=== PATIENT | female | born 1940 | race Caucasian/White ===

== ENCOUNTER → 2017-10-11 | Outpatient (CLI) | payer MEDICARE | LOC: M.RAD 09:50 | DX: R06.02 Shortness of breath (principal); R63.4 Abnormal weight loss ==

== ENCOUNTER 2021-05-01 13:52 | Inpatient (IN) | payer MEDICARE ==
[~2021-05-01] VITALS: Ht 165.1 cm; Wt 58.1 kg
--- NOTE | ~2021-05-01 | CON ---
[address] [address] CONSULTATION Name: MARICARMEN TREJO Room: [address] IN .R.#: [id number] Admission: 05/01/21 Attend Phys: William Pickens MD Discharge: Date of : 42 Report #: [id number] THIS REPORT FOR: cc: Yoana Mahmood MD, Katrina MD Khosla, Parveen K. MD ~ DATE OF CONSULTATION: 05/02/2021 HISTORY OF PRESENT ILLNESS: This is a 80-year-old female patient who was evaluated by me for any neurological etiology for the patient, what looks like syncope. The patient does not remember much about it. She was sitting and went unresponsive. Apparently, she has low blood pressure at that time. She came back by herself. She had another episode in October and she was in [facility]. I do not think they found any cause for that. Review of systems indicates she does have a history of Parkinson disease. She follows up with Dr. Rai for the neurological care. She goes to [place]. She had a low blood pressure, even when she came to Emergency Room. Apparently, her heart rate was also low at that time. She feels back to her baseline. In fact, she was sitting and eating. REVIEW OF SYSTEMS: A 14-point review of systems was carried out. She had prior episode of syncope. She apparently has dementia. She is in assisted living. She denies any prior history of stroke. She is on Depakote, I am not sure why. She is not complaining of any new eye, ENT, cardiac, respiratory, GI, , musculoskeletal, constitutional, dermatological, hematological, psychiatric, throat, allergic symptom associated with present symptomatology. PAST MEDICAL HISTORY: Positive for Parkinson Disease as I understand, she is on Sinemet. FAMILY HISTORY: Unremarkable. SOCIAL HISTORY: She lives in assisted living. PHYSICAL EXAMINATION: GENERAL: Indicate she is alert. She could not tell me what month it is. She knew what hospital she was in. She knew the president who is now but could not tell me one before. Cranial nerve examination 2-12 looks mostly unremarkable. She moves all 4 extremities against gravity and resistance. Reflexes could not be elicited in the lower extremities. She did pretty well with the position sense in the lower extremities. 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 She does have some rigidity. There does not appear to have any ataxia. I could not look at the patient's fundus. She is moderately built individual. Her hearing and vision appear to be present and adequate. No facial dysmorphic features. Pulses are palpable. [place] [address] CONSULTATION Name: MARICAREMN TREJO Room: [address]#: [id number] Admission: 05/01/21 Attend Phys: William Pickens MD Discharge: Date of : 42 Report #: [id number] CARDIAC: Unremarkable. No respiratory difficulty was noticed. VITAL SIGNS: Blood pressure is 124/68, respirations 18, pulse 61, temperature 98.3. LABORATORY DATA: Indicate a normal white count, sodium is normal. Blood pressure is pretty good at 124/68 now, but apparently it was low when she came in. IMPRESSION: The episode is most likely secondary to hypotension or bradycardia she had. That can occur because of Shy-Drager syndrome, multisystem atrophy, type 1, but it is more likely to be some other systemic causes. I will check an MRI and an EEG to make sure there were no other abnormalities there. I discussed all of that with the patient and the patient's son and they want to proceed with that and we will see what this shows and leave further recommendations as indicated. Thank you very much for this referral. By: 1151 [id number] Melton MD /nt
--- NOTE | ~2021-05-01 | EEG ---
[address] [address] EEG STUDY REPORT Name: MARICARMEN TREJO Room: [address] IN .R.#: [id number] Admission: 05/01/21 Attend Phys: William Pickens MD Discharge: Date of : 42 Report #: [id number] THIS REPORT FOR: cc: Yoana Mahmood MD, Katrina MD Khosla,Candelario Cohen MD ~ DATE OF SERVICE: 05/03/2021 This patient is being evaluated for an episode of syncope. EEG was done by placing the electrode by standard 10-20 system of electrode placement. Both referential and sequential montages were used for recording. Background activity in this patient's EEG is about 8 Hz and 25 microvolt. The patient became drowsy that is associated with bilateral slowing. Photic stimulation is unremarkable. Throughout the record, no active epileptiform activity was noticed. IMPRESSION: This patient's EEG is intermixed with some theta range slowing. There is a nonspecific abnormality which can occur with encephalopathy, effect of psychotropic medication, dementia, etc. Clinical correlation is recommended. By: [id number] [id number] Melton MD /nt
[2021-05-01 13:53] VITALS: BP 114/66
[2021-05-01 14:13] LABS: ABSOLUTE BASOPHILS 0.1 thou/uL (0.0-0.2); ABSOLUTE EOSINOPHILS 0.1 thou/uL (0.0-0.7); ABSOLUTE LYMPHOCYTES 2.4 thou/uL (0.8-5.3); ABSOLUTE MONOCYTES 0.5 thou/uL (0.0-1.2); ABSOLUTE NEUTROPHILS 3.2 thou/uL (1.6-8.1); BASOPHILS 1.3 %; EOSINOPHILS 1.3 %; HEMATOCRIT 40.1 % (37.0-47.0); HEMOGLOBIN 13.6 gm/dL (12.0-15.0); LYMPHOCYTES 38.3 %; MCH 29.3 pg (26.0-34.0); MCHC 33.9 g/dL (28.0-37.0); MCV 86.4 fL (80.0-100.0); MONOCYTES 8.4 %; MPV 8.6 fl. (7.2-11.1); NUCLEATED RBCS 0 /100WBC; PLATELET COUNT* 242 thou/uL (150-400); POLYS 50.7 %; RBC 4.64 mil/uL (4.20-5.00); RDW-CV 14.9 % (10.5-14.5); WBC 6.2 thou/uL (4.0-11.0)
[2021-05-01 14:23] LABS: CALCIUM 8.7 mg/dL (8.5-10.1); CREATININE 0.7 mg/dL (0.6-1.3); POTASSIUM 4.4 mmol/L (3.5-5.1)
[2021-05-01 14:26] LABS: ALBUMIN 3.4 g/dL (3.4-5.0); TOTAL BILIRUBIN 0.6 mg/dL (<0.1-1.0); TOTAL PROTEIN 7.3 g/dL (6.4-8.2)
[2021-05-01] MEDS ORDERED: NORVASC5 MG PO (14:35)
[2021-05-01] MEDS ORDERED: CARBIDOPA-LEVO1 EAC9 PO (14:36)
[2021-05-01] MEDS ORDERED: DULCOLAX STOOL100 M1 PO (14:37)
[2021-05-01] MEDS ORDERED: DIVALPROEX SOD125 MG PO (14:37)
[2021-05-01] MEDS ORDERED: THERAPEUTIC M PO (14:38)
[2021-05-01] MEDS ORDERED: EXELON1 EAC1 TRANSDERM (14:38)
[2021-05-01 16:54] LABS: URINE BILIRUBIN NEGATIVE (Negative); URINE BLOOD NEGATIVE (Negative); URINE CLARITY CLEAR; URINE COLOR YELLOW; URINE GLUCOSE-RANDOM NEGATIVE (Negative); URINE KETONES TRACE (Negative); URINE PROTEIN NEGATIVE (Negative)
[2021-05-01 16:55] LABS: URINE LEUKOCYTES-REFLEX NEGATIVE (Negative); URINE NITRITE-REFLEX NEGATIVE (Negative); URINE UROBILINOGEN 0.2 E.U./dl (0.2-1.0)
[2021-05-01 18:15] VITALS: BP 142/85
[2021-05-01 18:39] VITALS: BP 171/75
[2021-05-01] MEDS ORDERED: ACETAMINOPHEN325 M1 PO (18:52)
[2021-05-01] MEDS ORDERED: CARRINGTON MOIS99 G2 TOP (18:53)
[2021-05-01] MEDS ORDERED: MIRALAX119 GM PO (18:54)
[2021-05-01 20:00] VITALS: BP 134/69
[2021-05-02] VITALS: BP 151/77
[2021-05-02 04:00] VITALS: BP 167/68
[2021-05-02 05:48] LABS: CHOLESTEROL 256 mg/dL (<200); HDL CHOLESTEROL 45 mg/dL (>40); LDL CHOLESTEROL 182 mg/dL (<100); SERUM ASSESSMENT CLEAR; TC:HDL 5.7 Ratio (Not establshd); TRIGLYCERIDE 147 mg/dL (<150); VLDL 29 mg/dL (<40)
[2021-05-02 08:00] VITALS: BP 148/66
--- NOTE | 2021-05-02 10:56 | EKG ---
[place] [address] ELECTROCARDIOGRAM REPORT Name: MARICARMEN TREJO Room: [address] IN [facility]#: [id number] Admission: 05/01/21 Attend Phys: William Pickens, Discharge: Date of : 42 Date of Service: 05/01/21 1356 Report #: [id number] THIS REPORT FOR: //name// [facility] ED Test Date: 2021-05-01 Test Time: 13:56:19 Pat Name: MARICARMEN TREJO Department: Room: [facility] Gender: F Production Mechanic: : 1940 Requested By: Felipe Santana Order Number: [id number] MD: Ifeanyi Cummins Measurements Intervals [place] Rate: 59 P: 6 VT: 169 QRS: -22 QRSD: 92 T: 83 QT: 446 QTc: 442 Interpretive Statements Sinus rhythm Borderline left axis deviation Low voltage, precordial leads Abnormal R-wave progression, early transition No previous ECG available for comparison Electronically Signed On 05-02-2021 10:56:29 MACHINE SKIVER by Ifeanyi Cummins [email or web address] <ELECTRONICALLY SIGNED> By: Ifeanyi Cummins MD, [facility] 05/02/21 1056 1356 1356 Ifeanyi Cummins MD, [facility] /EPI
[2021-05-02 12:12] VITALS: BP 124/68
[2021-05-02 16:41] VITALS: BP 134/69
--- NOTE | 2021-05-02 17:03 | 2DMMODE ---
[place] [address] 2 D/M-MODE ECHOCARDIOGRAM Name: FRANCO TREJOGrace Sanchez Room: [address] IN [facility]#: [id number] Admission: 05/01/21 Attend Phys: William Pickens, Discharge: Date of : 42 Date of Service: 05/02/21 1703 Report #: [id number] THIS REPORT FOR: cc: Yoana Mahmood MD, Katrina MD Liston, Michael J. MD [facility] ~ APPROVED REPORT Study performed: 05/02/2021 13:56:51 EXAM: Comprehensive 2D, Doppler, and color-flow Echocardiogram Patient Location: In-Patient Room #: [facility] Status: routine BSA: 1.64 HR: 63 bpm BP: 124/68 mmHg Rhythm: NSR Other Information Study Quality: Good Indications Syncope 2D Dimensions IVSd: 9.65 (7-11mm) LVOT Diam: 19.10 (18-24mm) LVDd: 33.42 mm PWd: 7.60 (7-11mm) Ascending Ao: 31.76 (22-36mm) LVDs: 21.16 (25-40mm) Aortic Root: 31.94 mm Volumes Left Atrial Volume (Systole) LA ESV Index: 31.70 mL/m2 Aortic Valve AoV Peak David.: 1.39 m/s AO Peak Gr.: 7.70 mmHg LVOT Max P.16 mmHg AO Mean Gr.: 3.97 mmHg LVOT Mean P.89 mmHg LVOT Max V: 1.24 m/s AO V2 VTI: 27.46 cm LVOT Mean V: 0.77 m/s FERNANDEZ (VTI): 2.29 cm2 LVOT V1 VTI: 21.97 [place] [address] 2 D/M-MODE ECHOCARDIOGRAM Name: MARICARMEN TREJO Room: [address]#: [id number] Admission: 05/01/21 Attend Phys: William Pickens, Discharge: Date of : 42 Date of Service: 05/02/21 1703 Report #: [id number] Mitral Valve E/A Ratio: 1.08 MV Decel. Time: 277.64 ms MV E Max David.: 1.12 m/s MV PHT: 80.52 ms MVA (PHT): 2.73 cm2 TDI E/Lateral E': 12.44 E/Medial E': 14.00 Medial E' David.: 0.08 m/s Lateral E' David.: 0.09 m/s Pulmonary Valve PV Peak David.: 0.92 m/s PV Peak Gr.: 3.41 mmHg Tricuspid Valve RAP Estimate: 5.00 mmHg TR Peak Gr.: 15.01 mmHg RVSP: 20.00 mmHg PA Pressure: 20.00 mmHg Left Ventricle The left ventricle is normal size. There is normal LV segmental wall motion. There is normal left ventricular wall thickness. Left ventricular systolic function is normal. LVEF is 70%. Transmitral Doppler flow pattern suggests impaired LV relaxation. Right Ventricle The right ventricle is normal size. The right ventricular systolic function is normal. Atria Left atrium is moderately dilated. The right atrium size is normal. Aortic Valve The aortic valve is normal in structure. No aortic regurgitation is present. There is no aortic valvular stenosis. Mitral Valve The mitral valve is normal in structure. There is no mitral valve regurgitation noted. No evidence of mitral valve stenosis. Tricuspid Valve The tricuspid valve is normal in structure. Trace tricuspid regurgitation. [place] [address] 2 D/M-MODE ECHOCARDIOGRAM Name: MARICARMEN TREJO Room: [address]#: [id number] Admission: 05/01/21 Attend Phys: William Pickens, Discharge: Date of : 42 Date of Service: 05/02/21 1703 Report #: [id number] Pulmonic Valve The pulmonary valve is normal in structure. Trace pulmonic regurgitation. Great Vessels The aortic root is normal in size. IVC is normal in size and collapses >50% with inspiration. Pericardium There is no pericardial effusion. <Conclusion> The left ventricle is normal size. There is normal left ventricular wall thickness. Left ventricular systolic function is normal. LVEF is 70%. Transmitral Doppler flow pattern suggests impaired LV relaxation. Left atrium is moderately dilated. Trace tricuspid regurgitation. No pulmonary hypertension. IVC is normal in size and collapses >50% with inspiration. <ELECTRONICALLY SIGNED> By: Galileo Chavez MD, FACC 05/02/211702 02 02 Galileo Chavez MD, FACC /INF
[2021-05-02 20:00] VITALS: BP 134/74
[2021-05-03 00:55] VITALS: BP 124/68
[2021-05-03 05:58] VITALS: BP 134/67
[2021-05-03 08:00] VITALS: BP 130/71
[2021-05-03 12:00] VITALS: BP 143/58
[2021-05-03 16:00] VITALS: BP 102/65
[2021-05-03 16:49] VITALS: BP 102/65
== END 2021-05-03 17:46 | disposition home or self-care (01) | DRG 312 ==
LOC: M.ERS 13:52 → M.TBA-ER 15:31 → M.2W 15:31
PROVIDERS: Emergency Medicine Emergency Medical Services; ADMIT Internal Medicine; ATTEND Internal Medicine
PROC: 4A10X4Z Monitoring of Central Nervous Electrical Activity, External Approach (ICD-10-PCS; principal; 2021-05-01)
DX: I95.1 Orthostatic hypotension (principal); G91.9 Hydrocephalus, unspecified; G20 Parkinson's disease; Z20.822 Contact with and (suspected) exposure to COVID-19; F02.80 Dementia in other diseases classified elsewhere, unspecified severity, without behavioral disturbance, psychotic disturbance, mood disturbance, and anxiety